=== PATIENT | female | born 1995 | race Caucasian/White ===

== ENCOUNTER 2017-03-18 02:41 | Emergency (ER) | payer OTHER ==
[2017-03-18 02:47] VITALS: BP 115/70
[2017-03-18] MEDS ORDERED: METOCLOPRAMIDE HCL 10 MG TABLET PO ONE (03:15)
--- NOTE | 2017-03-18 03:15 | ER Document Report ---
ED GI/ - General Mode of Arrival: Ambulatory Information source: Patient TRAVEL OUTSIDE OF THE [place] IN LAST 30 DAYS: No - HPI Patient complains to provider of: Vomiting, Other - nausea Onset: This evening Associated symptoms: Other - see notes above <BENEDICTO SANCHEZ - Last Filed: 03/18/17 03:32> <DAHLIANITZA MURPHY KRISTINE - Last Filed: 03/18/17 05:41> - General Chief Complaint: Nausea/Vomiting Stated Complaint: NAUSEA,VOMITING Time Seen by Provider: 03/18/17 03:03 Notes: 21 year old female presents to the ED complaining of nausea and vomiting that started earlier tonight. Patient reports that since July 2016 she has woken up with nausea and vomiting at least once a month. Patient has seen her primary care provider, but have not understood the reason for these episodes. Patient went to [facility] looking for medication to 'help her sleep.' Patient was told to see her primary care provider and GI specialist. Patient denies fever. ( BENEDICTO SANCHEZ) - Related Data Allergies/Adverse Reactions: No Known Allergies Allergy (Unverified 03/18/17 03:28) Past Medical History - General Information source: Patient - Social History Smoking Status: Unknown if Ever Smoked Family History: Reviewed & Not Pertinent Patient has suicidal ideation: No Patient has homicidal ideation: No Renal/ Medical History: Denies: Hx Peritoneal Dialysis Surgical Hx: Negative <BENEDICTO SANCHEZ - Last Filed: 03/18/17 03:32> Review of Systems - Review of Systems Constitutional: No symptoms reported. denies: Fever EENT: No symptoms reported Cardiovascular: No symptoms reported Respiratory: No symptoms reported Gastrointestinal: See HPI, Nausea, Vomiting Genitourinary: No symptoms reported Female Genitourinary: No symptoms reported Musculoskeletal: No symptoms reported Skin: No symptoms reported Hematologic/Lymphatic: No symptoms reported Neurological/Psychological: No symptoms reported -: Yes All other systems reviewed and negative <BENEDICTO SANCHEZ - Last Filed: 03/18/17 03:32> Physical Exam - Vital signs Interpretation: Normal - General General appearance: Appears well, Alert - HEENT Head: Normocephalic, Atraumatic Eyes: Normal Pupils: PERRL - Respiratory Respiratory status: No respiratory distress Chest status: Nontender Breath sounds: Normal Chest palpation: Normal - Cardiovascular Rhythm: Regular Heart sounds: Normal auscultation Murmur: No - Abdominal Inspection: Normal Distension: No distension Bowel sounds: Normal Tenderness: Nontender Organomegaly: No organomegaly - Back Back: Normal, Nontender - Extremities General upper extremity: Normal inspection, Nontender, Normal color, Normal ROM , Normal temperature General lower extremity: Normal inspection, Nontender, Normal color, Normal ROM , Normal temperature, Normal weight bearing. No: Joe's sign - Neurological Neuro grossly intact: Yes Cognition: Normal Orientation: AAOx4 Shira Coma Scale Eye Opening: Spontaneous Shira Coma Scale Verbal: Oriented Shira Coma Scale Motor: Obeys Commands [place] Coma Scale Total: 15 Speech: Normal Motor strength normal: LUE, RUE, LLE, RLE Sensory: Normal - Psychological Associated symptoms: Normal affect, Normal mood - Skin Skin Temperature: Warm Skin Moisture: Dry Skin Color: Normal <NITZA CURRY - Last Filed: 03/18/17 05:41> - Vital signs Vitals: Temp Pulse Resp BP Pulse Ox 98.8 F 64 15 115/70 99 03/18/17 02:43 03/18/17 02:43 03/18/17 02:43 03/18/17 02:43 03/18/17 02:43 Course <BENEDICTO SANCHEZ - Last Filed: 03/18/17 03:32> <NITZA CURRY - Last Filed: 03/18/17 05:41> - Re-evaluation Re-evalutation: 03/18/17 Patient is here for nausea would like medication for nausea. No pain. Is able to keep some sips of fluids. No diarrhea. Patient had a test at [facility] that was negative. Note, she does not want sleeping medications. (NITZA CURRY) - Vital Signs Vital signs: Temp Pulse Resp BP Pulse Ox 98.8 F 64 15 115/70 99 03/18/17 02:45 03/18/17 02:45 03/18/17 02:45 03/18/17 02:45 03/18/17 02:45 Discharge <BENEDICTO SANCHEZ - Last Filed: 03/18/17 03:32> <NITZA CURRY - Last Filed: 03/18/17 05:41> - Discharge Clinical Impression: Nausea & vomiting Qualifiers: Vomiting type: unspecified Vomiting Intractability: unspecified Qualified Code( s): R11.2 - Nausea with vomiting, unspecified Condition: Stable Disposition: HOME, SELF-CARE Instructions: Vomiting ([facility]) Prescriptions: Metoclopramide HCl [Reglan 10 mg Tablet] 1 tab PO TIDP PRN #25 tablet PRN Reason: Scribe Attestation: 03/18/17 05:41 I personally performed the services described in the documentation, reviewed and edited the documentation which was dictated to the scribe in my presence, and it accurately records my words and actions. (NITZA CURRY) Scribe Documentation - Scribe Written by Eduardo:: Eduardo López, 03/18/2017 [id number] acting as scribe for :: Yvonne <BENEDICTO SANCHEZ - Last Filed: 03/18/17 03:32>
== END 2017-03-18 03:30 | disposition home or self-care (01) ==
LOC: ER 02:41
DX: R11.2 Nausea with vomiting, unspecified (principal)
CPT/HCPCS: 99283

== ENCOUNTER 2018-11-03 19:56 | Emergency (ER) | payer OTHER ==
--- NOTE | 2018-11-03 23:10 | ER Document Report ---
ED General - General Chief Complaint: Sore Throat Stated Complaint: SORE THROAT Time Seen by Provider: 11/03/18 22:56 Primary Care Provider: FAWAD GURROLA MD [Primary Care Provider] - Follow up as needed Mode of Arrival: Ambulatory Information source: Patient TRAVEL OUTSIDE OF THE [place] IN LAST 30 DAYS: No - HPI Patient complains to provider of: Sore throat, flulike illness Onset: Other - 2 days Onset/Duration: Sudden, Persistent Quality of pain: Achy Severity: Moderate Pain Level: 3 Associated symptoms: Body/muscle aches, Fever - Subjective, Sore throat. denies: Diarrhea, Nausea, Vomiting Exacerbated by: Denies Relieved by: Denies Similar symptoms previously: No Recently seen / treated by doctor: No Notes: 23-year-old female presenting with 2 days of very sore throat, body aches, subjective fever and headache. No nausea vomiting or diarrhea - Related Data Allergies/Adverse Reactions: Penicillins Allergy (Verified 11/03/18 21:31) Past Medical History - General Information source: Patient - Social History Smoking Status: Never Smoker Family History: Reviewed & Not Pertinent Patient has suicidal ideation: No Patient has homicidal ideation: No Renal/ Medical History: Denies: Hx Peritoneal Dialysis Review of Systems - Review of Systems Notes: Constitutional: Positive for subjective fever EENT: No eye redness. No eye pain. No ear pain. Positive for sore throat Cardiovascular: No chest pain. No palpitations. Respiratory: No cough. No shortness of breath. No respiratory distress. Gastrointestinal: No abdominal pain. No nausea, vomiting, or diarrhea. Genitourinary: Atraumatic. No lesions. No pain. No discharge. Musculoskeletal: Atraumatic. No swelling. No deformities. Skin: No rash or lesions. Lymphatic: No swollen lymph nodes. Neurologic: No headache. No syncope. Psychiatric: No suicidal or homicidal ideation. Physical Exam - Vital signs Vitals: Temp Pulse Resp BP Pulse Ox 98.7 F 82 18 107/66 99 11/03/18 20:19 11/03/18 20:19 11/03/18 20:19 11/03/18 20:19 11/03/18 20:19 - Notes Notes: General: Well-developed, well-nourished. In no acute distress. Non-toxic appearing. Cardiac: Well-perfused. Regular rate and rhythm. No murmurs, rubs, or gallops. Pulmonary: No respiratory distress. No cyanosis. Bilateral lung powers are clear to auscultation. Abdominal: Non-distended. Non-rigid. Bowels sounds are present in all four quadrants. No guarding or rebound. HEENT: Head is atraumatic. Conjunctivae not reddened. No tearing. PERRL. EOMI. Orbits atraumatic. No periorbital swelling or erythema. Minimally injected posterior pharynx. Neck: Supple. No adenopathy. No meningismus. Dermatologic: Warm with good turgor. No rash. Atraumatic. Chest: Atraumatic. No chest wall tenderness to palpation. Musculoskeletal: Moves all extremities well. No range of motion deficits. no muscular or joint tenderness. No paraspinal muscle tenderness. no midline spinal tenderness or step-off. Genitourinary: Examination deferred Neurologic: No gross neurologic deficits. Psychiatric: Normal mood. Course - Re-evaluation Re-evalutation: 11/03/18 23:08 Strep test is negative. Culture is sent. Patient does not have a very beefy red throat. No exudates. No cervical adenopathy is present. Patient actually looks too well to have mono. I discussed it with her and I do not think that it is worth running the test because I think it is most likely negative. Patient is amenable to symptomatic therapy. - Vital Signs Vital signs: Temp Pulse Resp BP Pulse Ox 98.7 F 82 18 107/66 99 11/03/18 20:19 11/03/18 20:19 11/03/18 20:19 11/03/18 20:19 11/03/18 20:19 Discharge - Discharge Clinical Impression: Viral pharyngitis Condition: Good Disposition: HOME, SELF-CARE Instructions: Acetaminophen, Fever ([facility]), Sore Throat ([facility]), Viral Syndrome ([facility]) Additional Instructions: Drink lots of water, get plenty of rest. You may be contagious so be careful. Recommend everybody in the household wash hands diligently. Referrals: FAWAD GURROLA MD [Primary Care Provider] - Follow up as needed
[2018-11-03 23:16] VITALS: BP 113/59
== END 2018-11-03 23:17 | disposition home or self-care (01) ==
LOC: ER 19:56
DX: J02.8 Acute pharyngitis due to other specified organisms (principal); B97.89 Other viral agents as the cause of diseases classified elsewhere; M79.10 Myalgia, unspecified site; R51 Headache; Z88.0 Allergy status to penicillin
CPT/HCPCS: 87070; 87077; 87880; 99283

== ENCOUNTER 2019-11-23 03:23 | Emergency (ER) | payer OTHER ==
[2019-11-23] MEDS ORDERED: METOCLOPRAMIDE HCL INJ/PF 10 MG/2 ML SDV IM ONE (04:08)
--- NOTE | 2019-11-23 04:11 | ER Document Report ---
ED GI/ - General Chief Complaint: Vomiting Stated Complaint: VOMITING +PREG 5WEEKS Time Seen by Provider: 11/23/19 04:08 Primary Care Provider: [facility] [Provider Group] - Follow up as needed FAWAD GURROLA MD [Primary Care Provider] - Follow up as needed Mode of Arrival: Ambulatory Information source: Patient Notes: 24-year-old female presented to ED for complaint of vomiting since midnight tonight. She states she is 4 5 weeks with a positive test at her provider's office. She states she is vomited at least 7 8 times today. She states she is not having any vaginal bleeding. She states she is cramping from the vomiting. She states last menstrual cycle was on October 07, 2019. She is 1 para 0. She does not smoke drink or use any illicit drugs. She has no past medical history. TRAVEL OUTSIDE OF THE [place] IN LAST 30 DAYS: No - HPI Patient complains to provider of: Pelvic pain, , Other - Nausea and vomiting Onset: Other Timing/Duration: Intermittent - Midnight Quality of pain: Cramping Severity at maximum: Moderate Severity in ED: Moderate Pain Level: 3 Location: Other - Generalized pain due to vomiting Associated symptoms: Nausea, Vomiting Exacerbated by: Other - Vomiting Relieved by: Denies Similar symptoms previously: Yes Recently seen / treated by doctor: Yes - Related Data Allergies/Adverse Reactions: Penicillins Allergy (Verified 11/03/18 21:31) Home Medications: acyclovir Past Medical History - General Information source: Patient - Social History Smoking Status: Never Smoker Chew tobacco use (# tins/day): No Frequency of alcohol use: None Drug Abuse: None Lives with: Family Family History: Reviewed & Not Pertinent Patient has suicidal ideation: No Patient has homicidal ideation: No - Past Medical History Cardiac Medical History: Reports: None Pulmonary Medical History: Reports: None EENT Medical History: Reports: None Neurological Medical History: Reports: None Endocrine Medical History: Reports: None Renal/ Medical History: Reports: None Malignancy Medical History: Reports: None GI Medical History: Reports: None Musculoskeletal Medical History: Reports None Skin Medical History: Reports None Psychiatric Medical History: Reports: None Traumatic Medical History: Reports: None Infectious Medical History: Reports: None Surgical Hx: Negative Past Surgical History: Reports: None - Immunizations Immunizations up to date: Yes Review of Systems - Review of Systems Constitutional: No symptoms reported EENT: No symptoms reported Cardiovascular: No symptoms reported Respiratory: No symptoms reported Gastrointestinal: Abdominal pain, Nausea, Vomiting Genitourinary: No symptoms reported Female Genitourinary: Musculoskeletal: No symptoms reported Skin: No symptoms reported Hematologic/Lymphatic: No symptoms reported Neurological/Psychological: No symptoms reported -: Yes All other systems reviewed and negative Physical Exam - Vital signs Vitals: Temp 98.6 F 11/23/19 04:07 Interpretation: Normal - General General appearance: Appears well, Alert - HEENT Head: Normocephalic, Atraumatic Eyes: Normal Pupils: PERRL - Respiratory Respiratory status: No respiratory distress Chest status: Nontender Breath sounds: Normal Chest palpation: Normal - Cardiovascular Rhythm: Regular Heart sounds: Normal auscultation Murmur: No - Abdominal Inspection: Normal Distension: No distension Bowel sounds: Hyperactive Tenderness: Nontender. No: Tender Organomegaly: No organomegaly - Back Back: Normal, Nontender - Extremities General upper extremity: Normal inspection, Nontender, Normal color, Normal ROM, Normal temperature General lower extremity: Normal inspection, Nontender, Normal color, Normal ROM, Normal temperature, Normal weight bearing. No: Joe's sign - Neurological Neuro grossly intact: Yes Cognition: Normal Orientation: AAOx4 Shira Coma Scale Eye Opening: Spontaneous [place] Coma Scale Verbal: Oriented Shira Coma Scale Motor: Obeys Commands Shira Coma Scale Total: 15 Speech: Normal Motor strength normal: LUE, RUE, LLE, RLE Sensory: Normal - Psychological Associated symptoms: Normal affect, Normal mood - Skin Skin Temperature: Warm Skin Moisture: Dry Skin Color: Normal Course - Re-evaluation Re-evalutation: 11/23/19 06:57 Patient stated she felt much better after getting fluids Reglan and Phenergan p.o. She was discharged home with prescription for p.o. Phenergan and a Phenergan suppository dispense pack. She was instructed that she cannot take both at the same time the p.o. was for when she was nauseated but not vomiting the suppositories of her when she is actually vomiting. She was instructed to please follow-up with ANTISQUE[facility] CHALKER and her primary care doctor. Patient verbalized understanding and agreement with treatment plan and patient was discharged home. - Vital Signs Vital signs: Temp Pulse Resp BP Pulse Ox 98.2 F 78 18 122/75 99 11/23/19 06:39 11/23/19 06:39 11/23/19 06:39 11/23/19 06:39 11/23/19 06:39 - Laboratory Result Diagrams: 11/23/19 05:18 11/23/19 05:18 Laboratory results interpreted by me: 11/23/19 11/23/19 11/23/19 04:17 05:18 05:18 Lymph % (Auto) 11.5 L Seg Neutrophils % 84.4 H Sodium 135.2 L Glucose 114 H Urine Protein 30 H Urine Ketones TRACE H Urine HCG, Qual POSITIVE H Discharge - Discharge Clinical Impression: Emesis during early Condition: Stable Disposition: HOME, SELF-CARE Additional Instructions: You were seen today for nausea and vomiting during early . INTRAVENOUS (I V) FLUIDS: As part of your care today, you received intravenous (IV) fluids. IV fluids are administered to patients who are dehydrated or to those who have certain chemical (electrolyte) abnormalities that need correcting. ANTINAUSEA MEDICATION: You have been given a medication to suppress nausea and vomiting. This type of medication can be given as a shot, pill, or suppository. It will usually last for many hours. Pills and shots usually last six to eight hours. For the typical illness, only one or two doses of the medication may be necessary. Mild lightheadedness may occur. This type of medicine can cause drow siness. Do not drive or operate dangerous machinery while under its influence. Do not mix with alcohol. See your doctor at once if you have muscle spasms or tightness, or uncontrollable motions (particularly of the neck, mouth, or jaw). Persistent vomiting or severe lightheadedness should also be evaluated by the physician. REGLAN (METOCLOPRAMIDE): Reglan has been prescribed. This medicine affects the stomach and intestines. It can be used to treat nausea and vomiting, to prevent reflux of stomach acid up into the esophagus, or to increase the contractions of the stomach and intestines. It is often prescribed for esophagitis, and for paralysis of the stomach in diabetics. Reglan can cause either mild restlessness or drowsiness. You should contact the doctor at once if you become extremely restless, anxious, or cannot sleep, or if you develop uncontrollable motions of the lips, tongue, or jaw. Do not take alcohol with this medicine. Do not drive or operate machinery until you have been taking this medicine long enough to know how it affects you. Call the doctor if you develop abdominal pains, lightheadedness, black stool, or blood in the stool or vomitus. Antinausea Medication You have been given a medication to suppress nausea and vomiting. This type of medication can be given as a shot, pill, or suppository. It will usually last for many hours. Pills and shots usually last six to eight hours, suppositories last about 12 hours. For the typical illness, only one or two doses of the medication may be necessary. Mild lightheadedness may occur. This type of medicine can cause drowsiness. Do not drive or operate dangerous machinery while under its influence. Do not mix with alcohol. See your doctor at once if you have muscle spasms or tightness, or uncontrollable motions (particularly of the neck, mouth, or jaw). Persistent vomiting or severe lightheadedness should also be evaluated by the physician. FOLLOW-UP CARE: If you have been referred to a physician for follow-up care, call the physicians office for an appointment as you were instructed or within the next two days. If you experience worsening or a significant change in your symptoms, notify the physician immediately or return to the Emergency Department at any time for re-evaluation. Prescriptions: Promethazine HCl [Phenergan 25 mg Tablet] 25 mg PO Q6H PRN #15 tablet PRN Reason: Referrals: FAWAD GURROLA MD [Primary Care Provider] - Follow up as needed [facility] [Provider Group] - Follow up as needed
[2019-11-23 04:34] LABS: APPEARANCE,URINE CLEAR; BILIRUBIN,URINE NEGATIVE (NEGATIVE); COLOR,URINE YELLOW; GLUCOSE, URINE NEGATIVE (NEGATIVE); KETONES,URINE TRACE mg/dL (NEGATIVE); LEUKOCYTE ESTERASE,URINE NEGATIVE (NEGATIVE); NITRITE,URINE NEGATIVE (NEGATIVE); PROTEIN,URINE 30 mg/dL (NEGATIVE); URINE SPECIFIC GRAVITY 1.026; UROBILINOGEN,URINE NEGATIVE mg/dL (<2.0)
[2019-11-23] MEDS ORDERED: NORMAL SALINE 1000 ML 1,000 ML IV ONE (04:48)
[2019-11-23] MEDS ORDERED: ONDANSETRON HCL INJ/PF 4 MG/2 ML SDV ONE (04:54)
[2019-11-23 05:32] LABS: ABSOLUTE LYMPHOCYTES (AUTO) 1.1 10^3/uL (0.5-4.7); ABSOLUTE MONOCYTES (AUTO) 0.4 10^3/uL (0.1-1.4); BASOPHILS % (AUTO) 0.2 % (0-2); EOSINOPHILS % (AUTO) 0.1 % (0-6); HEMATOCRIT 39.9 % (36.0-47.0); HEMOGLOBIN 13.9 g/dL (12.0-15.5); LYMPHOCYTES % (AUTO) 11.5 % (13-45); MEAN CORPUSCULAR HEMOGLOBIN 31.6 pg (27.0-33.4); MEAN CORPUSCULAR HGB CONC 34.8 g/dL (32.0-36.0); MEAN CORPUSCULAR VOLUME 91 fl (80-97); MONOCYTES % (AUTO) 3.8 % (3-13); PLATELET COUNT 245 10^3/uL (150-450); RED BLOOD COUNT 4.39 10^6/uL (3.72-5.28); RED CELL DISTRIBUTION WIDTH 12.9 % (11.5-14.0); SEGMENTED NEUTROPHILS % (AUTO) 84.4 % (42-78); TOTAL CELLS COUNTED % (AUTO) 100 %; WHITE BLOOD COUNT 9.5 10^3/uL (4.0-10.5)
[2019-11-23 05:45] LABS: ALBUMIN 4.3 g/dL (3.5-5.0); ALKALINE PHOSPHATASE 40 U/L (38-126); ANION GAP 8 (5-19); ASPARTATE AMINO TRANSFERASE 32 U/L (14-36); BILIRUBIN,TOTAL 0.9 mg/dL (0.2-1.3); BLOOD UREA NITROGEN 14 mg/dL (7-20); CALCIUM 10.2 mg/dL (8.4-10.2); CARBON DIOXIDE 22 mmol/L (22-30); CHLORIDE 105 mmol/L (98-107); GLUCOSE 114 mg/dL (75-110); TOTAL PROTEIN 7.7 g/dL (6.3-8.2)
[2019-11-23] MEDS ORDERED: PROMETHAZINE HCL 25 MG TABLET PO ONE (05:47)
[2019-11-23] MEDS ORDERED: PROMETHAZINE HCL 25 MG SUPP (4 SUPP/ER DISP) PR ONE (06:20)
[2019-11-23 06:40] VITALS: BP 122/75
== END 2019-11-23 06:55 | disposition home or self-care (01) ==
LOC: ER 03:23
DX: O21.9 Vomiting of pregnancy, unspecified (principal); Z3A.01 Less than 8 weeks gestation of pregnancy
CPT/HCPCS: 99284; 96372; 96360; 36415; 84702; 85025; 81025; 80053; 81001; J3490; J2765; J7030

== ENCOUNTER 2019-12-11 23:19 | Emergency (ER) | payer OTHER ==
[2019-12-11] MEDS ORDERED: NORMAL SALINE 1000 ML 1,000 ML IV ONE (23:44)
[2019-12-11] MEDS ORDERED: METOCLOPRAMIDE HCL INJ/PF 10 MG/2 ML SDV IV ONE (23:44)
[2019-12-11] MEDS ORDERED: DIPHENHYDRAMINE HCL 50 MG/ML VIAL IV ONE (23:44)
[2019-12-11 23:46] VITALS: BP 98/58
--- NOTE | 2019-12-11 23:46 | ER Document Report ---
ED Medical Screen (RME) - General Chief Complaint: Vomiting Stated Complaint: NAUSEA/VOMITING Time Seen by Provider: 12/11/19 23:42 Primary Care Provider: FAWAD GURROLA MD [Primary Care Provider] - Follow up as needed Mode of Arrival: Ambulatory Information source: Patient Notes: Patient presents 8 weeks G1, P0. Patient reports nausea vomiting since yesterday. Patient states she is vomited 5 times. No diarrhea. Patient denies any abdominal pain or vaginal bleeding. I have greeted and performed a rapid initial assessment of this patient. A comprehensive ED assessment and evaluation of the patient, analysis of test results and completion of the medical decision making process will be conducted by additional ED providers. TRAVEL OUTSIDE OF THE [place] IN LAST 30 DAYS: No - Related Data Allergies/Adverse Reactions: Penicillins Allergy (Verified 11/03/18 21:31) Home Medications: Dicletis Past Medical History - Social History Frequency of alcohol use: None Drug Abuse: None Renal/ Medical History: Denies: Hx Peritoneal Dialysis - Immunizations Immunizations up to date: Yes Physical Exam - Vital signs Vitals: Temp Pulse Resp Pulse Ox 98.6 F 52 L 18 100 12/11/19 23:39 12/11/19 23:39 12/11/19 23:39 12/11/19 23:39 - General General appearance: Appears well, Alert In distress: None - Cardiovascular Rhythm: Regular. No: Tachycardia Heart sounds: S1 appreciated, S2 appreciated Course - Vital Signs Vital signs: Temp Pulse Resp BP Pulse Ox 98.6 F 52 L 18 100 12/11/19 23:39 12/11/19 23:39 12/11/19 23:39 12/11/19 23:39 Doctor's Discharge - Discharge Referrals: FAWAD GURROLA MD [Primary Care Provider] - Follow up as needed
[2019-12-12 00:10] LABS: ABSOLUTE LYMPHOCYTES (AUTO) 1.8 10^3/uL (0.5-4.7); ABSOLUTE MONOCYTES (AUTO) 0.6 10^3/uL (0.1-1.4); ABSOLUTE NEUT (AUTO) 8.5 10^3/uL (1.7-8.2); BASOPHILS % (AUTO) 0.3 % (0-2); EOSINOPHILS % (AUTO) 0.1 % (0-6); HEMOGLOBIN 14.5 g/dL (12.0-15.5); LYMPHOCYTES % (AUTO) 16.1 % (13-45); MEAN CORPUSCULAR HEMOGLOBIN 31.4 pg (27.0-33.4); MEAN CORPUSCULAR HGB CONC 34.5 g/dL (32.0-36.0); MEAN CORPUSCULAR VOLUME 91 fl (80-97); MONOCYTES % (AUTO) 5.3 % (3-13); PLATELET COUNT 238 10^3/uL (150-450); RED CELL DISTRIBUTION WIDTH 13.1 % (11.5-14.0); SEGMENTED NEUTROPHILS % (AUTO) 78.2 % (42-78); TOTAL CELLS COUNTED % (AUTO) 100 %; WHITE BLOOD COUNT 10.9 10^3/uL (4.0-10.5)
[2019-12-12 00:26] LABS: ALKALINE PHOSPHATASE 47 U/L (38-126); ANION GAP 6 (5-19); ASPARTATE AMINO TRANSFERASE 18 U/L (14-36); BILIRUBIN,TOTAL 0.5 mg/dL (0.2-1.3); BLOOD UREA NITROGEN 9 mg/dL (7-20); CALCIUM 10.6 mg/dL (8.4-10.2); CARBON DIOXIDE 23 mmol/L (22-30); CHLORIDE 102 mmol/L (98-107); GLUCOSE 87 mg/dL (75-110); POTASSIUM 4.1 mmol/L (3.6-5.0); TOTAL PROTEIN 7.1 g/dL (6.3-8.2)
[2019-12-12 01:44] LABS: APPEARANCE,URINE SLIGHTLY-CLOUDY; BILIRUBIN,URINE NEGATIVE (NEGATIVE); COLOR,URINE AMBER; GLUCOSE, URINE NEGATIVE (NEGATIVE); KETONES,URINE 80 mg/dL (NEGATIVE); LEUKOCYTE ESTERASE,URINE NEGATIVE (NEGATIVE); NITRITE,URINE NEGATIVE (NEGATIVE); PROTEIN,URINE 30 mg/dL (NEGATIVE); URINE SPECIFIC GRAVITY 1.029
== END 2019-12-12 01:28 | disposition left against medical advice (07) ==
LOC: ER 23:19
DX: O21.9 Vomiting of pregnancy, unspecified (principal); Z79.899 Other long term (current) drug therapy; Z3A.08 8 weeks gestation of pregnancy; Z88.0 Allergy status to penicillin; Z53.20 Procedure and treatment not carried out because of patient's decision for unspecified reasons
CPT/HCPCS: 99281; 36415; 83690; 85025; 80053; 81001; J1200; J2765; J7030